=== PATIENT | female | born 1985 | race Caucasian/White ===

== ENCOUNTER 2017-01-18 19:51 | Inpatient (IN) | payer BC, OTHER ==
[2017-01-18 20:34] LABS: Hematocrit 35 % (35-47); Hemoglobin 12.3 g/dl (12.0-16.0); Mean Corpuscular HGB Conc 35 g/dl (31-36); Mean Corpuscular Hemoglobin 33 pg (27-31); Mean Corpuscular Volume 93 fL (80-97); Mean Platelet Volume 10 um3 (7.4-10.4); Red Blood Count 3.74 10^6/ul (4.0-5.4); Red Cell Distribution Width 13 % (10.5-15); White Blood Count 11.7 10^3/ul (3.5-10.8)
[2017-01-19] MEDS ORDERED: Oxytocin in LR* 20 UNITS/1,000 ML BAG IVPB ONE (01:14)
[2017-01-19] MEDS ORDERED: Witch Hazel PAD* JAR TOPICAL PRN (01:35)
[2017-01-19] MEDS ORDERED: Glycerin ADULT SUPP PR PRN (01:35)
[2017-01-19] MEDS ORDERED: Acetaminophen TAB* 325 MG PO PRN (01:35)
[2017-01-19] MEDS ORDERED: Dibucaine 1% 28.35 GM TUBE PR PRN (01:35)
[2017-01-19] MEDS ORDERED: Ibuprofen TAB* 600 MG PO PRN (01:35)
[2017-01-19] MEDS ORDERED: Oxytocin in LR* 20 UNITS/1,000 ML BAG IVPB SCH (02:00)
[2017-01-19] MEDS ORDERED: Simethicone TAB* 80 MG TAB.CHEW PO SCH (08:30)
[2017-01-19] MEDS: Docusate CAP* 100 MG PO SCH ×3 (10:00→23:50)
[2017-01-20] MEDS: Docusate CAP* 100 MG PO SCH ×3 (08:45→19:45)
[2017-01-20 09:56] LABS: Hematocrit 38 % (35-47); Hemoglobin 13.1 g/dl (12.0-16.0); Mean Corpuscular HGB Conc 35 g/dl (31-36); Mean Corpuscular Hemoglobin 33 pg (27-31); Mean Corpuscular Volume 94 fL (80-97); Mean Platelet Volume 10 um3 (7.4-10.4); Red Blood Count 3.99 10^6/ul (4.0-5.4); Red Cell Distribution Width 13 % (10.5-15); White Blood Count 12.3 10^3/ul (3.5-10.8)
[2017-01-20] MEDS: Ferrous Gluconate TAB* 324 MG TAB PO SCH (10:12)
[2017-01-21] MEDS: Ferrous Gluconate TAB* 324 MG TAB PO SCH (06:20)
[2017-01-21] MEDS ORDERED: Influenza VAC *QUAD* 2017-18* 0.5 ML SYRINGE IM ONE (06:36)
[2017-01-21] MEDS: Influenza VAC *QUAD* 2017-18* 0.5 ML SYRINGE IM ONE ×2 (06:39→09:04)
[2017-01-21 08:44] VITALS: BP 109/65
[2017-01-21] MEDS: Docusate CAP* 100 MG PO SCH (09:03)
== END 2017-01-21 11:00 | disposition home or self-care (01) | DRG 560 ==
LOC: MCHOBOUT 19:51 → MCHOB 20:16
PROVIDERS: ADMIT Obstetrics & Gynecology; ATTEND Obstetrics & Gynecology
PROC: 4A1HX4Z Monitoring of Products of Conception, Cardiac Electrical Activity, External Approach (ICD-10-PCS; principal; 2017-01-18)
PROC: 10E0XZZ Delivery of Products of Conception, External Approach (ICD-10-PCS; 2017-01-18)
PROC: 10907ZC Drainage of Amniotic Fluid, Therapeutic from Products of Conception, Via Natural or Artificial Opening (ICD-10-PCS; 2017-01-18)
PROC: 0HQ9XZZ Repair Perineum Skin, External Approach (ICD-10-PCS; 2017-01-18)
DX: O70.0 First degree perineal laceration during delivery (principal); O99.824 Streptococcus B carrier state complicating childbirth; Z3A.40 40 weeks gestation of pregnancy; Z37.0 Single live birth
CPT/HCPCS: 36415; 85025; 86850; 86900; 86901; 90686; A9270-GY; J2540